=== PATIENT | male | born 1995 | race African-American/Black ===

== ENCOUNTER 2017-05-26 11:14 | Emergency (ER) | payer SELFPAY ==
[~2017-05-26] VITALS: Ht 170.2 cm; Wt 70.0 kg
[~2017-05-26 11:14] MED LIST: DEXM20XR PO
[2017-05-26 11:15] VITALS: BP 132/84; PULSE 63; RESP 16; TEMP 98.9; O2SAT 99
[2017-05-26 11:34] VITALS: BP 134/81; PULSE 62; RESP 16; O2SAT 100
[2017-05-26] MEDS ORDERED: SODIUM CHLOR 0.9% 1000 ML INJ 1,000 ML IV SCH (11:40)
[2017-05-26] MEDS ORDERED: SODIUM CHLORIDE 0.9% FLUSH 10 ML FLUSH IV FLUSH PRN (11:45)
[2017-05-26] MEDS ORDERED: FAMOTIDINE 20 MG/2 ML VIAL IV PUSH ONE (11:45)
[2017-05-26] MEDS ORDERED: ONDANSETRON HCL 4 MG/2 ML VIAL IVP ONE (11:45)
--- NOTE | 2017-05-26 11:48 | PD ---
HPI Chief Complaint: GI Complaint Time Seen by Provider: 11:34 Travel History International Travel<30 days: No Contact w/Intl Traveler<30days: No Traveled to known affect area: No History of Present Illness HPI 21-year-old male complains of headache, abdominal pain, nausea vomiting. Patient states the symptoms started last night. Patient states that headache and mild aching headache. Patient states that headache is much better at this morning. Patient denies any visual change. Patient denies any neck pain. Patient denies any chest pain or shortness of breath. Patient denies any coughing congestion. Patient states that he has persistent abdominal cramping. Patient denies any abdominal pain radiation. Patient states that he has intermittent nausea vomiting since last night. Patient denies any blood or mucus in the stool. Patient denies any fever chills. PFSH Past Medical History ADHD: Yes Developmental Delay: No Diminished Hearing: No Immunizations Current: Yes Influenza Vaccination: No Past Surgical History Other Surgery: Yes (RT MIDDLE FINGER SURGERY) Social History Alcohol Use: No Tobacco Use: No Substance Use: No Allergies-Medications (Allergen,Severity, Reaction): Coded Allergies: No Known Allergies (Verified Adverse Reaction, Unknown, 05/26/17) Reported Meds & Prescriptions Reported Meds & Active Scripts Active No Active Prescriptions or Reported Medications Review of Systems General / Constitutional: No: Fever Eyes: No: Visual changes HENT: No: Headaches Cardiovascular: No: Chest Pain or Discomfort Respiratory: No: Shortness of Breath Gastrointestinal: Positive: Nausea, Vomiting, Abdominal Pain Genitourinary: No: Dysuria Musculoskeletal: No: Pain Skin: No Rash Neurologic: No: Weakness Psychiatric: No: Depression Endocrine: No: Polydipsia Hematologic/Lymphatic: No: Easy Bruising Physical Exam Narrative GENERAL: Well-nourished, well-developed patient. SKIN: Focused skin assessment warm/dry. HEAD: Normocephalic. EYES: No scleral icterus. No injection or drainage. NECK: Supple, trachea midline. No JVD or lymphadenopathy. CARDIOVASCULAR: Regular rate and rhythm without murmurs, gallops, or rubs. RESPIRATORY: Breath sounds equal bilaterally. No accessory muscle use. GASTROINTESTINAL: Abdomen soft, nondistended. Patient has mild tenderness on palpation epigastric area. No rebound tenderness. No mass. MUSCULOSKELETAL: No cyanosis, or edema. BACK: Nontender without obvious deformity. No CVA tenderness. Neurologic exam normal. Data Data Last Documented VS Vital Signs Date Time Temp Pulse Resp B/P (MAP) Pulse Ox O2 Delivery O2 Flow Rate FiO2 05/26/17 11:34 62 16 134/81 (98) 100 Room Air 05/26/17 11:15 98.9 Orders Orders Complete Blood Count With Diff (05/26/17 11:40) Comprehensive Metabolic Panel (05/26/17 11:40) Lipase (05/26/17 11:40) Iv Access Insert/Monitor (05/26/17 11:40) Ecg Monitoring (05/26/17 11:40) Oximetry (05/26/17 11:40) Ondansetron Inj (Zofran Inj) (05/26/17 11:45) Sodium Chlor 0.9% 1000 Ml Inj (Ns 1000 M (05/26/17 11:40) Sodium Chloride 0.9% Flush (Ns Flush) (05/26/17 11:45) Famotidine Inj (Pepcid Inj) (05/26/17 11:45) Labs Laboratory Tests Test 05/26/17 00:00 White Blood Count 6.4 TH/MM3 Red Blood Count 6.34 MIL/MM3 Hemoglobin 14.6 GM/DL Hematocrit 46.6 % Mean Corpuscular Volume 73.5 FL Mean Corpuscular Hemoglobin 23.1 PG Mean Corpuscular Hemoglobin Concent 31.4 % Red Cell Distribution Width 14.2 % Platelet Count 208 TH/MM3 Mean Platelet Volume 9.4 FL Neutrophils (%) (Auto) 81.6 % Lymphocytes (%) (Auto) 8.1 % Monocytes (%) (Auto) 9.7 % Eosinophils (%) (Auto) 0.5 % Basophils (%) (Auto) 0.1 % Neutrophils # (Auto) 5.2 TH/MM3 Lymphocytes # (Auto) 0.5 TH/MM3 Monocytes # (Auto) 0.6 TH/MM3 Eosinophils # (Auto) 0.0 TH/MM3 Basophils # (Auto) 0.0 TH/MM3 CBC Comment DIFF FINAL Differential Comment Blood Urea Nitrogen 12 MG/DL Creatinine 1.07 MG/DL Random Glucose 93 MG/DL Total Protein 8.1 GM/DL Albumin 4.3 GM/DL Calcium Level 9.0 MG/DL Alkaline Phosphatase 97 U/L Aspartate Amino Transf (AST/SGOT) 17 U/L Alanine Aminotransferase (ALT/SGPT) 22 U/L Total Bilirubin 0.6 MG/DL Sodium Level 139 MEQ/L Potassium Level 3.9 MEQ/L Chloride Level 107 MEQ/L Carbon Dioxide Level 24.7 MEQ/L Anion Gap 7 MEQ/L Estimat Glomerular Filtration Rate 107 ML/MIN Lipase 119 U/L MDM Medical Decision Making Medical Screen Exam Complete: Yes Emergency Medical Condition: Yes Interpretation(s) 12:30 PM. CBC WBC 6.4. Hemoglobin 14.6 hematocrit 46.6. MCV 73.5. 81 neutrophil. CMP within normal limit. Differential Diagnosis Differential diagnosis including gastroenteritis, viral syndrome, electrolyte imbalance, dehydration, gastritis, PUD, pancreatitis, colitis, UTI, pyelonephritis. Narrative Course 21-year-old male with headache, abdominal pain, nausea vomiting. Normal saline solution 1 L IV bolus. Zofran 4 mg IV. Pepcid 20 mg IV. Diagnosis Primary Impression: Gastroenteritis Patient Instructions: General Instructions Additional Instructions: Clear fluids today and advance diet as tolerated. Take medication as needed. Follow-up with personal physician. Return if worse. Med/Other Pt SpecificInfo: Prescription(s) given Scripts Dicyclomine (Bentyl) 10 Mg Cap 10 MG PO TID Y for Bowel Management, #10 CAP 0 Refills Prov: Clif Irvin MD 05/26/17 Ondansetron Odt (Zofran Odt) 4 Mg Tab 4 MG SL Q6HR Y for Nausea/Vomiting, #10 TAB 0 Refills Prov: Clif Irvin MD 05/26/17 Disposition: 01 DISCHARGE HOME Condition: Stable Clif Irvin MD May 26, 2017 11:48
[2017-05-26 11:59] LABS: AUTOMATED NEUTROPHIL # 5.2 TH/MM3 (1.8-7.7); BASOPHIL % 0.1 % (0.0-2.0); EOSINOPHIL % 0.5 % (0.0-4.0); HEMATOCRIT 46.6 % (39.0-51.0); HEMO FLAGS DIFF FINAL; LYMPH % 8.1 % (9.0-44.0); LYMPHOCYTE # 0.5 TH/MM3 (1.0-4.8); MEAN CELL VOLUME 73.5 FL (80.0-100.0); MEAN CORPUSCULAR HEMOGLOBIN 23.1 PG (27.0-34.0); MEAN CORPUSCULAR HGB CONC 31.4 % (32.0-36.0); MONO % 9.7 % (0.0-8.0); NEUT % 81.6 % (16.0-70.0); PLATELET COUNT 208 TH/MM3 (150-450); RED BLOOD COUNT 6.34 MIL/MM3 (4.50-5.90); RED CELL DISTRIBUTION WIDTH 14.2 % (11.6-17.2); WHITE BLOOD COUNT 6.4 TH/MM3 (4.0-11.0)
[2017-05-26 12:15] LABS: ALKALINE PHOSPHATASE 97 U/L (45-117); TOTAL BILIRUBIN ADULT 0.6 MG/DL (0.2-1.0)
[2017-05-26 12:17] LABS: ALT (GPT) 22 U/L (9-52); ANION GAP 7 MEQ/L (5-15); AST (GOT) 17 U/L (15-39); BICARBONATE 24.7 MEQ/L (21.0-32.0); BLOOD UREA NITROGEN 12 MG/DL (7-18); CHLORIDE 107 MEQ/L (98-107); GLOMERULAR FILTRATION RATE 107 ML/MIN (>89); POTASSIUM 3.9 MEQ/L (3.5-5.1); SODIUM (NA) 139 MEQ/L (136-145)
[2017-05-26] MEDS ORDERED: ZOFR4TAB3 SL (12:37)
[2017-05-26] MEDS ORDERED: DICY10 PO (12:37)
== END 2017-05-26 12:58 | disposition home or self-care (01) ==
LOC: NEPE 11:14
DX: K52.9 Noninfective gastroenteritis and colitis, unspecified (principal); R51 Headache
CPT/HCPCS: 80053; 83690; 85025; 96374; 96375; 99285; J2405; J7030